=== PATIENT | female | born 1975 | race Caucasian/White ===

== ENCOUNTER 2017-07-30 13:36 | Emergency (ER) | payer OTHER ==
[~2017-07-30] VITALS: Ht 172.7 cm; Wt 124.0 kg
[~2017-07-30 13:36] MED LIST: ALPRAZOLAM0.25 M2 PO; DAILY VALUE1 EACH PO; FLUOXETINE HCL40 MG PO; HYDROCODON-ACE1 EAC7 PO; KEFLEX500 MG PO; LEVOTHYROXINE150 MCG PO; SKELAXIN800 MG PO; TRAMADOL HCL50 MG PO
[2017-07-30] MEDS ORDERED: PRILOSEC20 MG PO (14:36)
[2017-07-30 16:35] VITALS: BP 130/110
== END 2017-07-30 16:36 | disposition home or self-care (01) ==
LOC: EME 13:36
DX: R10.9 Unspecified abdominal pain (principal); K29.70 Gastritis, unspecified, without bleeding; R51 Headache; Z88.0 Allergy status to penicillin; Z88.2 Allergy status to sulfonamides
CPT/HCPCS: 99281; 99283